=== PATIENT | male | born 1945 | race Caucasian/White ===

== ENCOUNTER 2023-10-01 18:24 | Inpatient (IN) | payer MEDICARE, SELFPAY ==
--- NOTE | ~2023-10-01 | XR_ITS ---
EXAMINATION: XR CHEST CLINICAL INFORMATION: Pneumonia. COMPARISON: None available. TECHNIQUE: AP view of the chest was obtained. FINDINGS: Normal heart size. Mild predominantly central interstitial thickening. No focal consolidation. No pleural effusion or pneumothorax. No acute osseous findings. XR/XR chest 1V IMPRESSION: Minimal interstitial prominence that is nonspecific and could be seen with small airways disease.
[2023-10-01 18:37] VITALS: BP 168/86; BP 200/116; PULSE 101; PULSE 97; RESP 20; TEMP 39.3; O2SAT 96; O2SAT 98; BMI 29.0
--- NOTE | 2023-10-01 18:40 | PC.NURSE ---
Pt reporting he received his covid/flu vaccine on 09/03 since then he has not felt well, dizziness/cough/weakness. Reporting he feels that he is developing a fever, oral temp at Ed was 102.7f. He is a/ox4 at this time.
--- NOTE | 2023-10-01 19:21 | ECG_ITS ---
Test Reason : dizziness Blood Pressure : / mmHG Vent. Rate : 092 BPM Atrial Rate : 092 BPM P-R Int : 142 ms QRS Dur : 082 ms QT Int : 354 ms P-R-T Axes : 072 -18 062 degrees QTc Int : 437 ms Normal sinus rhythm Left axis deviation Normal ECG No previous ECGs available Referred By: Roma Garcia Electronically Signed By:ROSENDO DE LEON MD
--- NOTE | 2023-10-01 19:23 | ED.GENADULT ---
HPI - General Adult General Chief complaint: General Medical Stated complaint: POS COVID COUGH CHILLS Time Seen by Provider: 10/01/23 19:14 Source: patient Mode of arrival: EMS Limitations: no limitations History of Present Illness HPI narrative: Patient comes to the emergency room complaining of not feeling well for approximately a month. Patient states that he has been coughing, no fever chills until today. Patient states that approximately a week ago, patient had some urinary retention, went to [facility], diagnosed for urinary retention. A catheter was inserted. Patient was supposed to follow up with Urology. However, patient was scared of urination trial, stating that if he would retain urine again, a catheter would have to be reinserted and patient refused to have his catheter removed. patient went to see his PCP today, he was started on a new blood pressure medication that he has not started yet. Related Data Home Medications Medication Instructions Recorded Confirmed amlodipine 5 mg tablet 5 mg PO BEDTIME 10/01/23 10/01/23 betamethasone, augmented 0.05 % 1 appl topical DAILY 10/01/23 10/01/23 topical cream cholecalciferol (vitamin D3) 25 25 mcg PO BEDTIME 10/01/23 10/01/23 mcg (1,000 unit) tablet lisinopril 40 mg tablet 40 mg PO BEDTIME 10/01/23 10/01/23 simvastatin 20 mg tablet 20 mg PO BEDTIME 10/01/23 10/01/23 tamsulosin 0.4 mg capsule 0.4 mg PO BEDTIME 10/01/23 10/01/23 Allergies Allergy/AdvReac Type Severity Reaction Status Date / Time No Known Allergies Allergy Verified 10/01/23 18:39 Review of Systems Review of Systems: Constitutional : No Weight loss, No Fever, No Chills, No Night Sweats, No Fatigue, No Malaise ENT/Mouth : No Hearing loss, No Ear Pain, No Nasal Congestion, No Sinus Pain, No Hoarseness, No sore throat, No Rhinorrhea, No Swallowing Difficulty Eyes: No Eye Pain, No Swelling, No Redness, No Foreign Body, No Discharge, No Vision Changes Cardiovascular : No Chest Pain, No SOB, No Dyspnea on Exertion, No Orthopnea, No Edema, No Palpitations Respiratory : No Cough, No Sputum, No Wheezing, No Smoke Exposure, No Dyspnea Gastrointestinal : No Nausea, No Vomiting, No Diarrhea, No Constipation, No abdominal Pain, No Hematochezia, No Melena Genitourinary : patient has a Foleyp catheter,, No Dysuria, No Urinary Frequency, No Hematuria, No Urinary Incontinence, No Urgency, No Flank Pain, No Urinary Flow Changes, No Hesitancy Musculoskeletal : No joint pain, No Myalgias, No Joint Swelling Skin : No Skin Lesions, No rash Neuro : No Weakness, No Numbness, No Paresthesias, No Loss of Consciousness, No Dizziness, No Headache Psych : No Anxiety/Panic, No Depression, No SI/HI/AH/VH, No Social Issues, Heme/Lymph: No Bruising, No Bleeding,No Lymphadenopathy Endocrine : No Polyuria, No Polydipsia, No Temperature Intolerance [facility] Past Medical History Medical History Urinary retention Mixed hyperlipidemia Essential hypertension Social History Social History Smoked in Last 30 Days: No Advance Directives: Yes Advance Directives Information Provided: No Advance Directives on File: No Physical Exam ED Vital Signs: Vital Signs - 24 hr 10/01/23 18:37 10/01/23 21:05 Temperature 102.7 F H 99.5 F Pulse Rate 97 90 Respiratory Rate 20 16 Blood Pressure 168/86 H 167/88 H Pulse Oximetry 96 92 Oxygen Delivery Method Room Air Room Air BMI result Body Mass Index 29.0 Const Other: Appearance: Alert. Oriented X3. No acute distress. Well-appearing Eyes: Pupils equal, round and reactive to light. ENT: Pharynx normal. Neck: Normal inspection. Neck supple. No lymph nodes noted. No crepitus CVS: Normal heart rate and rhythm. Pulses normal. Normal S1 and S2 Respiratory: No respiratory distress. Breath sounds normal. No Wheezing. No rales Abdomen: Soft and nontender. No rigidity. No distention. no flank pain Skin: Skin warm and dry. Normal skin color. Normal skin turgor. Extremities: No lower extremity edema. No Lacerations. No Rash Neuro: Oriented X 3. No motor deficit. No sensory deficit. Moving all extremities. No slurred speech. CN 2 through 12 grossly intact Psych: calm, cooperative, normal affect Medications Administered Generic Name Dose Route Start Last Admin Trade Name Freq PRN Reason Stop Dose Admin Enoxaparin Sodium 40 mg 10/01/23 21:00 10/01/23 21:06 Enoxaparin Sodium 40 Mg/0.4 Ml Syringe SUBCUT 40 mg Q24H DEBORAH Administration Sodium Chloride 1,000 mls @ 999 mls/hr 10/01/23 20:56 10/01/23 21:03 Ns IV 10/01/23 21:56 999 mls/hr .Q1H1M ONE Administration Ceftriaxone Sodium 1 gm/ 50 mls @ 100 mls/hr 10/01/23 21:00 10/01/23 21:05 Sodium Chloride IV 100 mls/hr Q24H DEBORAH Administration Discontinued Medications Generic Name Dose Route Start Last Admin Trade Name Freq PRN Reason Stop Dose Admin Acetaminophen 975 mg 10/01/23 19:22 10/01/23 19:33 Acetaminophen 325 Mg Tablet PO 10/01/23 19: 975 mg ONCE ONE Administration Medical Decision Making Medical Decision Making [facility] Narrative: - patient came in with a fever of 102.7, the source infection is unclear, may be viral. Patient does have a catheter, possibly a UTI? - Patient is not tachycardic, normal blood pressure, sepsis is not suspected. - At this time, 20:50, patient's urine has returned, patient does have a UTI. At this time, patient is unwilling to have his catheter removed due to fear of having urinary obstruction. Discussed with the patient eventually the catheter will have to be removed and have a urination trial. - I discussed the patient with Dr. Terrell, I will go ahead and start IV fluids, ceftriaxone. Patient to be admitted. -my interpretation of cxr: no pna Differential Diagnosis Differential Diagnoses: The differential diagnosis associated with the presentation includes ( UTI, COVID, influenza) Admission/Observation Consideration of admission/observation: Escalation of care including admission/observation considered Consult Healthcare Provider Management of the patient was discussed with: Hospitalist Lab Data [facility] Lab Attestation statement: I reviewed the patient's lab results. 10/01/23 19:57 10/01/23 19:54 Labs: Lab Results 10/01/23 10/01/23 10/01/23 Range/Units 19:54 19:55 19:57 WBC 16.9 H (4.8-10.8) X10*3/uL RBC 3.94 L (4.60-5.80) X10*6/uL Hgb 12.8 L (14.0-18.0) g/dl Hct 36.9 L (42.0-52.0) % MCV 93.7 (80.0-98.0) fL MCH 32.5 (27.0-33.0) pg MCHC 34.7 (31.0-36.0) g/dl RDW 13.0 (11.0-16.0) % Plt Count 193 (160-400) X10*3/uL MPV 8.8 L (9.4-12.4) fL Immature Gran % (Auto) 0.5 H (0.0-0.4) % Neut % (Auto) 67.7 (45-73) % Lymph % (Auto) 26.3 (20-40) % [place] % (Auto) 5.3 (2-11) % Eos % (Auto) 0.0 (0-4) % Baso % (Auto) 0.2 (0-2) % Lymph # (Auto) 4.5 (1.2-4.9) X10*3/uL [place] # (Auto) 0.9 (0.1-1.2) X10*3/uL Eos # (Auto) 0.0 (0.0-0.4) X10*3/uL Baso # (Auto) 0.0 (0.0-0.2) X10*3/uL Abs Immat Gran (auto) 0.09 H (0.00-0.03) X10*3/uL Absolute Neuts (auto) 11.4 H (2.0-8.3) x10*3/uL Absolute Nucleated RBC 0.000 (0.0-0.012) X10*3/uL Nucleated RBC % (auto) 0.0 (0.0-0.2) /100WBC Sodium 136 (135-145) mmol/L Potassium 3.8 (3.3-5.1) mmol/L Chloride 101 (96-108) mmol/L Carbon Dioxide 26 (22-29) mmol/L Anion Gap 13 (12-20) BUN 12 (9-16) mg/dL Creatinine 0.63 (0.5-1.4) mg/dL Estim Creat Clear Calc 101.6 Estimated GFR > 60 Random Glucose 109 (60-115) mg/dL Lactic Acid 1.1 (0.5-2.0) mmol/L Calcium 8.8 (8.4-10.2) mg/dL Total Bilirubin 0.8 (0.0-1.0) mg/dL Direct Bilirubin 0.3 (0.0-0.5) mg/dL AST 22 (5-37) U/L ALT 13 (0-40) U/L Alkaline Phosphatase 66 (39-117) U/L Troponin I High Sens 31.8 (<3.5-35.0) ng/L Total Protein 6.6 (6.5-8.0) g/dL Albumin 3.8 (3.5-5.0) g/dL Urine Color Urine Appearance Urine pH (5.0-9.0) Ur Specific [place] (1.005-1.025) Urine Protein (Neg-Trace) mg/dL Urine Glucose (UA) (Negative) mg/dL Urine Ketones (Negative) mg/dL Urine Blood (Negative) Urine Nitrite (Negative) Ur Leukocyte Esterase (Negative) Urine RBC (0-2) /HPF Urine WBC (0-5) /HPF Ur Squamous Epith Cells (0-2) /HPF Urine Bacteria (None Seen) Hyaline Casts (0-2) /LPF COVID-19 (KIERAN) (Negative) COVID-19 Clin Com Influenza Type A (ANGELITO) (Negative) Influenza Type B (ANGELITO) (Negative) Influenza A & B Note 10/01/23 10/01/23 Range/Units 20:04 20:08 WBC (4.8-10.8) X10*3/uL RBC (4.60-5.80) X10*6/uL Hgb (14.0-18.0) g/dl Hct (42.0-52.0) % MCV (80.0-98.0) fL MCH (27.0-33.0) pg MCHC (31.0-36.0) g/dl RDW (11.0-16.0) % Plt Count (160-400) X10*3/uL MPV (9.4-12.4) fL Immature Gran % (Auto) (0.0-0.4) % Neut % (Auto) (45-73) % Lymph % (Auto) (20-40) % [place] % (Auto) (2-11) % Eos % (Auto) (0-4) % Baso % (Auto) (0-2) % Lymph # (Auto) (1.2-4.9) X10*3/uL [place] # (Auto) (0.1-1.2) X10*3/uL Eos # (Auto) (0.0-0.4) X10*3/uL Baso # (Auto) (0.0-0.2) X10*3/uL Abs Immat Gran (auto) (0.00-0.03) X10*3/uL Absolute Neuts (auto) (2.0-8.3) x10*3/uL Absolute Nucleated RBC (0.0-0.012) X10*3/uL Nucleated RBC % (auto) (0.0-0.2) /100WBC Sodium (135-145) mmol/L Potassium (3.3-5.1) mmol/L Chloride (96-108) mmol/L Carbon Dioxide (22-29) mmol/L Anion Gap (12-20) BUN (9-16) mg/dL Creatinine (0.5-1.4) mg/dL Estim Creat Clear Calc Estimated GFR Random Glucose (60-115) mg/dL Lactic Acid (0.5-2.0) mmol/L Calcium (8.4-10.2) mg/dL Total Bilirubin (0.0-1.0) mg/dL Direct Bilirubin (0.0-0.5) mg/dL AST (5-37) U/L ALT (0-40) U/L Alkaline Phosphatase (39-117) U/L Troponin I High Sens (<3.5-35.0) ng/L Total Protein (6.5-8.0) g/dL Albumin (3.5-5.0) g/dL Urine Color Yellow Urine Appearance Cloudy Urine pH 7.5 (5.0-9.0) Ur Specific [place] 1.015 (1.005-1.025) Urine Protein 100 (2+) H (Neg-Trace) mg/dL Urine Glucose (UA) Negative (Negative) mg/dL Urine Ketones 15 (Negative) mg/dL Urine Blood Moderate (2+) H (Negative) Urine Nitrite Negative (Negative) Ur Leukocyte Esterase Small (1+) H (Negative) Urine RBC 3-5 H (0-2) /HPF Urine WBC >50 H (0-5) /HPF Ur Squamous Epith Cells 0-2 (0-2) /HPF Urine Bacteria 4+ (None Seen) Hyaline Casts 6-10 (0-2) /LPF COVID-19 (KIERAN) Negative (Negative) COVID-19 Clin Com See Note Influenza Type A (ANGELITO) Negative (Negative) Influenza Type B (ANGELITO) Negative (Negative) Influenza A & B Note See Note Independent Interpretation I performed an independent interpretation of an: Plain X-Ray Critical Care Time Critical Care Time Critical Care Time: Yes Total Critical Care Time: 60 Attestation: I have personally provided critical care time. Time includes review of lab data, radiology results, discussion with consultants, and monitoring for potential decompensation. Intervention performed as documented. Discharge Plan Discharge Clinical Impression: Acute UTI Patient Disposition: Admitted As Inpatient Prescriptions: No Action betamethasone, augmented 0.05 % cream 1 appl topical DAILY amlodipine 5 mg tablet 5 mg PO BEDTIME tamsulosin 0.4 mg capsule 0.4 mg PO BEDTIME simvastatin 20 mg tablet 20 mg PO BEDTIME lisinopril 40 mg Tablet 40 mg PO BEDTIME cholecalciferol (vitamin D3) 25 mcg (1,000 unit) Tablet 25 mcg PO BEDTIME
[2023-10-01] MEDS: Acetaminophen 325 MG TABLET 975 MG PO (19:33)
--- NOTE | 2023-10-01 19:36 | PC.NURSE ---
assumed care of pt
[2023-10-01 20:09] LABS: MANUAL DIFF FLAG NO
[2023-10-01 20:14] LABS: Basophils Percent Auto 0.2 % (0-2); Hematocrit 36.9 % (42.0-52.0); Hemoglobin 12.8 g/dl (14.0-18.0); Imm Gran Abs Auto 0.09 X10*3/uL (0.00-0.03); Imm Gran Pct Auto 0.5 % (0.0-0.4); Lymphocytes Absolute Auto 4.5 X10*3/uL (1.2-4.9); Lymphocytes Percent Auto 26.3 % (20-40); Mean Corpuscular HGB Conc 34.7 g/dl (31.0-36.0); Mean Corpuscular Hemoglobin 32.5 pg (27.0-33.0); Mean Corpuscular Volume 93.7 fL (80.0-98.0); Mean Platelet Volume 8.8 fL (9.4-12.4); Monocytes Absolute Auto 0.9 X10*3/uL (0.1-1.2); Monocytes Percent Auto 5.3 % (2-11); Neutrophils Absolute Auto 11.4 x10*3/uL (2.0-8.3); Neutrophils Percent Auto 67.7 % (45-73); Platelet Count 193 X10*3/uL (160-400); Red Blood Count 3.94 X10*6/uL (4.60-5.80); White Blood Count 16.9 X10*3/uL (4.8-10.8)
[2023-10-01 20:21] LABS: Lactic Acid 1.1 mmol/L (0.5-2.0)
[2023-10-01 20:22] LABS: Appearance Urine Cloudy; Color Urine Yellow; Glucose Urine UA Negative (Negative); Leukocyte Esterase Urine Small (1+) (Negative); Nitrite Urine Negative (Negative); PH 7.5 (5.0-9.0); Specific Gravity - Urine 1.015 (1.005-1.025); UMIC TRIGGER UACC YES; Urine Blood Moderate (2+) (Negative); Urine Ketones 15 mg/dL (Negative); Urine Protein 100 (2+) mg/dL (Neg-Trace)
[2023-10-01 20:25] LABS: Alanine Aminotransferase 13 U/L (0-40); Albumin Level 3.8 g/dL (3.5-5.0); Alkaline Phosphatase 66 U/L (39-117); Anion Gap 13 (12-20); Aspartate Amino Transferase 22 U/L (5-37); Bilirubin Direct 0.3 mg/dL (0.0-0.5); Bilirubin Total 0.8 mg/dL (0.0-1.0); Blood Urea Nitrogen 12 mg/dL (9-16); Calcium 8.8 mg/dL (8.4-10.2); Carbon Dioxide 26 mmol/L (22-29); Chloride 101 mmol/L (96-108); Creatinine Clr Calc Pharmacy 101.6; Estimated Glomerular Filt Rate > 60; Glucose Random 109 mg/dL (60-115); Potassium 3.8 mmol/L (3.3-5.1); Sodium 136 mmol/L (135-145); Total Protein 6.6 g/dL (6.5-8.0)
[2023-10-01 20:27] LABS: COVID-19 Test Negative (Negative); IDNOW Serial# BCCEAD1C
[2023-10-01 20:28] LABS: IDNOW Serial# 9DB6401D; Influenza A Negative (Negative); Influenza B2 Negative (Negative)
[2023-10-01 20:32] LABS: Troponin-I High Sensitivity 31.8 ng/L (<3.5-35.0)
[2023-10-01 20:34] LABS: Bacteria Urine 4+ (None Seen); Squamous Epithelial Cell Urine 0-2 /HPF (0-2); UACC Culture Trigger YES; WBC Urine >50 /HPF (0-5)
--- NOTE | 2023-10-01 20:56 | P.HPHOSP_ITS ---
History of Present Illness Date of Service: 10/01/23 Chief Complaint: Generalized weakness This is a 77-year-old male with pertinent history of essential hypertension, mixed hyperlipidemia, urinary retention on catheter who presents to the emergency department for generalized weakness, not feeling well and dizziness. Patient states he has not been feeling unwell for the last few days. Admits fevers and Chills. Also has generalized weakness. Patient states he gets dizzy when he tries to get up. Also noticed change in color of urine. Patient states that around Halloween, he was unable to pee and catheter was inserted due to urinary retention. No chest discomfort, palpitations, shortness of breath, abdominal pain, changes in bowel habits. In the emergency department, patient was found to be septic and urine concerning for UTI. Review of Systems 2 Constitutional: Constitutional: Reports chills, Reports fatigue, Reports fever(s), Reports lethargy, Reports poor appetite and Reports weakness Cardiovascular: Cardiovascular: Reports no additional cardiovascular complaints Respiratory: Respiratory: Reports no additional respiratory complaints Gastrointestinal: Gastrointestinal: Reports no additional gastrointestinal complaints Neurologic: Reports weakness Endocrine: Endocrine: Reports fatigue [facility] Medical History Urinary retention Mixed hyperlipidemia Essential hypertension Pertinent family history: No family history of early CAD Social History Patient Tobacco Use Status: Never used Tobacco Meds Allergies Allergy/AdvReac Type Severity Reaction Status Date / Time No Known Allergies Allergy Verified 10/01/23 18:39 Active Medications: Current Medications Acetaminophen (Acetaminophen 325 Mg Tablet) 650 mg PO Q6H PRN PRN Reason: Pain, Mild (Pain Scale 1-3) Enoxaparin Sodium (Enoxaparin Sodium 40 Mg/0.4 Ml Syringe) 40 mg SUBCUT Q24H DEBORAH Sodium Chloride (Ns) 1,000 mls @ 999 mls/hr IV .Q1H1M ONE Stop: 10/01/23 21:56 Melatonin (Melatonin 3 Mg Tablet) 6 mg PO BEDTIME PRN PRN Reason: Insomnia Ondansetron HCl (Ondansetron Hcl 4 Mg/2 Ml Vial) 4 mg IVPUSH Q8H PRN PRN Reason: Nausea and Vomiting Sodium Chloride (0.9 % Sodium Chloride Flush 3 Ml Syringe) 3 ml IVFLUSH QSHIFT [facility] Home Medications Medication Instructions Recorded Confirmed Last Taken Type amlodipine 5 mg tablet 5 mg PO BEDTIME 10/01/23 10/01/23 09/30/23 History betamethasone, augmented 0.05 % 1 appl topical DAILY 10/01/23 10/01/23 09/30/23 History topical cream cholecalciferol (vitamin D3) 25 25 mcg PO BEDTIME 10/01/23 10/01/23 09/30/23 History mcg (1,000 unit) tablet lisinopril 40 mg tablet 40 mg PO BEDTIME 10/01/23 10/01/23 09/30/23 History simvastatin 20 mg tablet 20 mg PO BEDTIME 10/01/23 10/01/23 09/30/23 History tamsulosin 0.4 mg capsule 0.4 mg PO BEDTIME 10/01/23 10/01/23 09/30/23 History Physical Exam 2 Vital Signs and Narrative: Vital Signs: Last Vital Signs Temp 102.7 F H 10/01/23 18:37 Pulse 97 10/01/23 18:37 Resp 20 10/01/23 18:37 BP 168/86 H 10/01/23 18:37 Pulse Ox 96 10/01/23 18:37 O2 Del Method Room Air 10/01/23 18:37 BMI result Body Mass Index 29.0 Elderly male lying in bed in no distress Neck supple, no JVD Regular rate and rhythm, S1-S2 heard Regular breath sounds bilaterally, no wheezing or crackles appreciated Abdomen soft nontender, no guarding, no rigidity Patient is awake, alert and oriented to self, place, time and person ; no focal motor deficit Psych: Normal mood No pedal edema Results Labs 10/01/23 19:57 10/01/23 19:54 Labs: Laboratory Results - last 24 hr 10/01/23 10/01/23 10/01/23 19:54 19:55 19:57 MCV 93.7 MCH 32.5 MCHC 34.7 RDW 13.0 Plt Count 193 MPV 8.8 L Immature Gran % (Auto) 0.5 H Neut % (Auto) 67.7 Lymph % (Auto) 26.3 [place] % (Auto) 5.3 Eos % (Auto) 0.0 Baso % (Auto) 0.2 Lymph # (Auto) 4.5 [place] # (Auto) 0.9 Eos # (Auto) 0.0 Baso # (Auto) 0.0 Abs Immat Gran (auto) 0.09 H Absolute Neuts (auto) 11.4 H Absolute Nucleated RBC 0.000 Nucleated RBC % (auto) 0.0 Anion Gap 13 Estim Creat Clear Calc 101.6 Estimated GFR > 60 Random Glucose 109 Lactic Acid 1.1 Calcium 8.8 Total Bilirubin 0.8 Direct Bilirubin 0.3 AST 22 ALT 13 Alkaline Phosphatase 66 Total Protein 6.6 Albumin 3.8 Urine Color Urine Appearance Urine pH Ur Specific [place] Urine Protein Urine Glucose (UA) Urine Ketones Urine Blood Urine Nitrite Ur Leukocyte Esterase Urine RBC Urine WBC Ur Squamous Epith Cells Urine Bacteria Hyaline Casts COVID-19 (KIERAN) COVID-19 Clin Com Influenza Type A (ANGELITO) Influenza Type B (ANGELITO) Influenza A & B Note 10/01/23 10/01/23 20:04 20:08 MCV MCH MCHC RDW Plt Count MPV Immature Gran % (Auto) Neut % (Auto) Lymph % (Auto) [place] % (Auto) Eos % (Auto) Baso % (Auto) Lymph # (Auto) [place] # (Auto) Eos # (Auto) Baso # (Auto) Abs Immat Gran (auto) Absolute Neuts (auto) Absolute Nucleated RBC Nucleated RBC % (auto) Anion Gap Estim Creat Clear Calc Estimated GFR Random Glucose Lactic Acid Calcium Total Bilirubin Direct Bilirubin AST ALT Alkaline Phosphatase Total Protein Albumin Urine Color Yellow Urine Appearance Cloudy Urine pH 7.5 Ur Specific [place] 1.015 Urine Protein 100 (2+) H Urine Glucose (UA) Negative Urine Ketones 15 Urine Blood Moderate (2+) H Urine Nitrite Negative Ur Leukocyte Esterase Small (1+) H Urine RBC 3-5 H Urine WBC >50 H Ur Squamous Epith Cells 0-2 Urine Bacteria 4+ Hyaline Casts 6-10 COVID-19 (KIERAN) Negative COVID-19 Clin Com See Note Influenza Type A (ANGELITO) Negative Influenza Type B (ANGELITO) Negative Influenza A & B Note See Note Assessment and Plan (1) Sepsis: Status: Acute Plan This is a 77-year-old male with pertinent history of essential hypertension, mixed hyperlipidemia, urinary retention on catheter who presents to the emergency department for generalized weakness, not feeling well and dizziness. #. Sepsis due to acute UTI: Will admit patient and initiate empiric IV antibiotics. Resuscitating with IV crystalloids. Lactic acid culture obtained. Urine culture pending #. Essential hypertension: Hold antihypertensives in the setting of sepsis. #. Mixed hyperlipidemia: On statin #. Urine retention: On Flomax. Is on catheter until voiding trial by Urology as an outpatient. Cardiac diet DVT prophylaxis: Lovenox Admit as inpatient and will require two night minimum hospital stay for IV antibiotics (as above), which is not possible in a lesser acute setting. Quality Stroke Does the patient have a stroke diagnosis?: No VTE Prior VTE?: No VTE Risk Level:: Medical - moderate - high VTE Device Contraindication: Treatment Not Indicated VTE Drug Contraindication: N/A - Med Ordered
[2023-10-01] MEDS: 0.9 % Sodium Chloride 1,000 ML 999 ML IV (21:03)
[2023-10-01 21:05] VITALS: BP 167/88; PULSE 90; RESP 16; TEMP 37.5; O2SAT 92
[2023-10-01] MEDS: cefTRIAXone sodium 1 GM in 0.9 % Sodium Chloride 50 ML IV (21:05)
[2023-10-01] MEDS: Enoxaparin Sodium 40 MG/0.4 ML SYRINGE SUBCUT (21:06)
--- NOTE | 2023-10-01 21:06 | PHA.MEDREC ---
Pharmacy Consult ? Medication Reconciliation Pharmacy has completed the medication reconciliation. Patient reported medicaitons. patient reported prescribed a new BP medication (amlodipine) but he has not started it yet. Catalina Pollard, DelmyD
[2023-10-01 21:12] VITALS: BP 156/80; PULSE 86
[2023-10-01] MEDS: Cholecalciferol (Vitamin D3) 25 MCG TABLET PO (21:56)
[2023-10-01] MEDS: Atorvastatin Calcium 10 MG TABLET PO (21:56)
[2023-10-01] MEDS: Tamsulosin HCL 0.4 MG CAPSULE PO (21:56)
[2023-10-01 21:57] VITALS: BP 166/95; PULSE 89
[2023-10-02] VITALS (8 sets, daily range): BP systolic 156–179; BP diastolic 78–94; PULSE 70–96; RESP 16–24; TEMP 36.4–37.3; O2SAT 94–97; BMI 29.0
[2023-10-02] MEDS: Benzonatate 100 MG CAPSULE 200 MG PO ×2 (04:27→15:22)
--- NOTE | 2023-10-02 05:13 | PC.NURSE ---
Addendum entered by Lizbeth Crews RN 10/02/23 05:19: cath noted upon arrival with dark yellow and slightly cloudy urine. Original Note: Arrived to the unit at 0300 from the ED, pt alert and oriented but endorsed weakness and gen malaise, not with strong persistent coughing non prod, denies any SOB nor CP, LS left throughout is dim with fine crackles, noted with +1 RLE edema, VS stable, notified Dr. Ricardo for prn cough med, Tessalon pearls ordered and given to pt.
[2023-10-02 06:21] LABS: Basophils Percent Auto 0.2 % (0-2); Eosinophils Absolute Auto 0.1 X10*3/uL (0.0-0.4); Eosinophils Percent Auto 0.3 % (0-4); Hemoglobin 12.1 g/dl (14.0-18.0); Imm Gran Abs Auto 0.08 X10*3/uL (0.00-0.03); Imm Gran Pct Auto 0.4 % (0.0-0.4); Lymphocytes Percent Auto 43.1 % (20-40); MANUAL DIFF FLAG SCAN; Mean Corpuscular HGB Conc 33.6 g/dl (31.0-36.0); Mean Corpuscular Volume 95.2 fL (80.0-98.0); Mean Platelet Volume 9.2 fL (9.4-12.4); Monocytes Percent Auto 5.2 % (2-11); Neutrophils Percent Auto 50.8 % (45-73); Platelet Count 176 X10*3/uL (160-400); Red Blood Count 3.78 X10*6/uL (4.60-5.80); Red Cell Distribution Width 13.1 % (11.0-16.0); SCAN SMEAR FLAG 1; White Blood Count 19.7 X10*3/uL (4.8-10.8)
[2023-10-02 06:22] LABS: Lymphocytes Absolute Auto 8.5 X10*3/uL (1.2-4.9)
[2023-10-02 06:37] LABS: Anion Gap 10 (12-20); Blood Urea Nitrogen 9 mg/dL (9-16); Calcium 8.4 mg/dL (8.4-10.2); Carbon Dioxide 26 mmol/L (22-29); Chloride 102 mmol/L (96-108); Creatinine Clr Calc Pharmacy 110.3; Estimated Glomerular Filt Rate > 60; Glucose Random 100 mg/dL (60-115); Potassium 3.2 mmol/L (3.3-5.1); Sodium 135 mmol/L (135-145)
[2023-10-02 07:08] LABS: SLIDE REVIEW VERIFIED
[2023-10-02] MEDS: Albuterol/Iprat 2.5/0.5MG 3 ML AMPUL.NEB INHALE ×3 (08:10→16:02)
[2023-10-02] MEDS: 0.9 % Sodium Chloride Flush 3 ML SYRINGE IVFLUSH ×2 (08:21→15:22)
--- NOTE | 2023-10-02 10:58 | P.PNIM_ITS ---
Subjective Subjective Date of Service: 10/02/23 Interval History: feeling better today Physical Exam 2 Vital Signs: Vital Signs: Last Vital Signs Temp 98.4 F 10/02/23 07:38 Pulse 87 10/02/23 08:11 Resp 16 10/02/23 08:11 BP 158/84 H 10/02/23 07:38 Pulse Ox 94 10/02/23 07:38 O2 Del Method Room Air 10/02/23 07:38 BMI result Body Mass Index 29.0 General: AO X 3, no acute distress Resp: CTA bilateral, no accessory muscles used CVS: S1,S2,RRR GI: soft, non tender, non distended Neuro: motor grossly intact, alert Psych: appropriate affect, appropriate insight Objective Data Active Medications Acetaminophen (Acetaminophen 325 Mg Tablet) 650 mg PO Q6H PRN PRN Reason: Pain, Mild (Pain Scale 1-3) Albuterol/Ipratropium (Albuterol/Iprat 2.5/0.5mg 3 Ml Ampul.Neb) 3 ml INHALE RQ4H WHILE AWAKE DEBORAH Last Admin: 10/02/23 08:10 Dose: 3 ml Documented By: GEOVANNY Albuterol/Ipratropium (Albuterol/Iprat 2.5/0.5mg 3 Ml Ampul.Neb) 3 ml INHALE Q4H PRN PRN Reason: Wheezing Amlodipine Besylate (Amlodipine Besylate 5 Mg Tablet) 5 mg PO BEDTIME DEBORAH; Protocol Atorvastatin Calcium (Atorvastatin Calcium 10 Mg Tablet) 10 mg PO BEDTIME DEBORAH Last Admin: 10/01/23 21:56 Dose: 10 mg Documented By: FRANKLYN Benzonatate (Benzonatate 100 Mg Capsule) 200 mg PO TID PRN PRN Reason: Cough Last Admin: 10/02/23 04:27 Dose: 200 mg Documented By: HEIDI Betamethasone Dipropion Augmented (Betamethasone Dip Aug 0.05% Cr 15 Gm Tube) 1 appl TOPICAL DAILY DEBORAH; Protocol Last Admin: 10/02/23 08:22 Dose: Not Given Documented By: JACQUELINE Non-Admin Reason: Med Not Available Enoxaparin Sodium (Enoxaparin Sodium 40 Mg/0.4 Ml Syringe) 40 mg SUBCUT Q24H DEBORAH Last Admin: 10/01/23 21:06 Dose: 40 mg Documented By: FRANKLYN Ceftriaxone Sodium 1 gm/ (Sodium Chloride) 50 mls @ 100 mls/hr IV Q24H [facility] Last Infusion: 10/01/23 21:48 Dose: Infused Documented By: FRANKLYN Lisinopril (Lisinopril 40 Mg Tablet) 40 mg PO BEDTIME DEBORAH; Protocol Melatonin (Melatonin 3 Mg Tablet) 6 mg PO BEDTIME PRN PRN Reason: Insomnia Ondansetron HCl (Ondansetron Hcl 4 Mg/2 Ml Vial) 4 mg IVPUSH Q8H PRN PRN Reason: Nausea and Vomiting Sodium Chloride (0.9 % Sodium Chloride Flush 3 Ml Syringe) 3 ml IVFLUSH QSHIFT [facility] Last Admin: 10/02/23 08:21 Dose: 3 ml Documented By: JACQUELINE Tamsulosin HCl (Tamsulosin Hcl 0.4 Mg Capsule) 0.4 mg PO BEDTIME [facility] Last Admin: 10/01/23 21:56 Dose: 0.4 mg Documented By: FRANKLYN Vitamin D (Cholecalciferol (Vitamin D3) 25 Mcg Tablet) 25 mcg PO BEDTIME [facility] Last Admin: 10/01/23 21:56 Dose: 25 mcg Documented By: FRANKLYN Labs 10/02/23 05:41 10/02/23 05:41 Labs: Laboratory Results - last 24 hr 10/01/23 10/01/23 10/01/23 19:54 19:55 19:57 MCV 93.7 MCH 32.5 MCHC 34.7 RDW 13.0 Plt Count 193 MPV 8.8 L Immature Gran % (Auto) 0.5 H Neut % (Auto) 67.7 Lymph % (Auto) 26.3 [place] % (Auto) 5.3 Eos % (Auto) 0.0 Baso % (Auto) 0.2 Lymph # (Auto) 4.5 [place] # (Auto) 0.9 Eos # (Auto) 0.0 Baso # (Auto) 0.0 Abs Immat Gran (auto) 0.09 H Absolute Neuts (auto) 11.4 H Absolute Nucleated RBC 0.000 Nucleated RBC % (auto) 0.0 Smear Tech's Comments Anion Gap 13 Estim Creat Clear Calc 101.6 Estimated GFR > 60 Random Glucose 109 Lactic Acid 1.1 Calcium 8.8 Total Bilirubin 0.8 Direct Bilirubin 0.3 AST 22 ALT 13 Alkaline Phosphatase 66 Total Protein 6.6 Albumin 3.8 Urine Color Urine Appearance Urine pH Ur Specific [place] Urine Protein Urine Glucose (UA) Urine Ketones Urine Blood Urine Nitrite Ur Leukocyte Esterase Urine RBC Urine WBC Ur Squamous Epith Cells Urine Bacteria Hyaline Casts COVID-19 (KIERAN) COVID-19 Clin Com Influenza Type A (ANGELITO) Influenza Type B (ANGELITO) Influenza A & B Note 10/01/23 10/01/23 10/02/23 20:04 20:08 05:41 MCV 95.2 MCH 32.0 MCHC 33.6 RDW 13.1 Plt Count 176 MPV 9.2 L Immature Gran % (Auto) 0.4 Neut % (Auto) 50.8 Lymph % (Auto) 43.1 H [place] % (Auto) 5.2 Eos % (Auto) 0.3 Baso % (Auto) 0.2 Lymph # (Auto) 8.5 H [place] # (Auto) 1.0 Eos # (Auto) 0.1 Baso # (Auto) 0.0 Abs Immat Gran (auto) 0.08 H Absolute Neuts (auto) 10.0 H Absolute Nucleated RBC 0.000 Nucleated RBC % (auto) 0.0 Smear Tech's Comments VERIFIED Anion Gap 10 L Estim Creat Clear Calc 110.3 Estimated GFR > 60 Random Glucose 100 Lactic Acid Calcium 8.4 Total Bilirubin Direct Bilirubin AST ALT Alkaline Phosphatase Total Protein Albumin Urine Color Yellow Urine Appearance Cloudy Urine pH 7.5 Ur Specific [place] 1.015 Urine Protein 100 (2+) H Urine Glucose (UA) Negative Urine Ketones 15 Urine Blood Moderate (2+) H Urine Nitrite Negative Ur Leukocyte Esterase Small (1+) H Urine RBC 3-5 H Urine WBC >50 H Ur Squamous Epith Cells 0-2 Urine Bacteria 4+ Hyaline Casts 6-10 COVID-19 (KIERAN) Negative COVID-19 Clin Com See Note Influenza Type A (ANGELITO) Negative Influenza Type B (ANGELITO) Negative Influenza A & B Note See Note Assessment and Plan (1) Acute UTI: Status: Acute Plan 77M PMH put chronic urinary retention with catheter, hypertension, hyperlipidemia presented with weakness Sepsis due to catheter associated UTI in patient with chronic due to urinary retention Ceftriaxone, follow-up cultures Continue Flomax Hypertension Amlodipine, lisinopril Hyperlipidemia Continue statin DVT prophylaxis with Lovenox Full code reason for continued hospitalization: Awaiting cultures in complicated UTI Quality Stroke Does the patient have a stroke diagnosis?: No VTE Prior VTE?: No VTE Risk Level:: Medical - moderate - high VTE Device Contraindication: Treatment Not Indicated VTE Drug Contraindication: N/A - Med Ordered
--- NOTE | 2023-10-02 12:48 | MHC.CM.PN ---
PT REPORTS HE LIVES WITH HIS AND IS INDEPENDENT WITH ALL CARE HE DENIES USE OF DME OR HOME SERVICES PT STATES HE HAS A HCP, COPY REQUESTED PCP: MELINDA PEREZ IMM DELIVERED DCP: HOME ? [facility] TO TRANSPORT
[2023-10-02] MEDS: Enoxaparin Sodium 40 MG/0.4 ML SYRINGE SUBCUT (19:28)
[2023-10-02] MEDS: lisinopriL 40 MG TABLET PO (19:30)
[2023-10-02] MEDS: amLODIPine Besylate 5 MG TABLET PO (19:30)
[2023-10-02] MEDS: Atorvastatin Calcium 10 MG TABLET PO (19:30)
[2023-10-02] MEDS: Cholecalciferol (Vitamin D3) 25 MCG TABLET PO (19:30)
[2023-10-02] MEDS: Tamsulosin HCL 0.4 MG CAPSULE PO (19:30)
[2023-10-02] MEDS: cefTRIAXone sodium 1 GM in 0.9 % Sodium Chloride 50 ML IV (19:31)
[2023-10-02] MEDS: guaiFEN/Codeine SF 200/20/10ML 10 ML LIQUID 5 ML PO (20:30)
--- NOTE | 2023-10-03 01:00 | PC.NURSE ---
Acquired care at 2330. Pt is intermittently awake due to IV pump alarming inside the room. RN removed the IV pump that is not used and placed it outside to allow pt to sleep. NO other complaints. remains in place with cloudy yellow colored urine.
[2023-10-03 03:13] VITALS: BP 169/93; PULSE 87; RESP 18; TEMP 36.9; O2SAT 93
[2023-10-03 06:33] LABS: Hematocrit 35.7 % (42.0-52.0); Hemoglobin 12.2 g/dl (14.0-18.0); Mean Corpuscular HGB Conc 34.2 g/dl (31.0-36.0); Mean Corpuscular Hemoglobin 32.2 pg (27.0-33.0); Mean Corpuscular Volume 94.2 fL (80.0-98.0); Mean Platelet Volume 9.1 fL (9.4-12.4); Platelet Count 181 X10*3/uL (160-400); Red Blood Count 3.79 X10*6/uL (4.60-5.80); Red Cell Distribution Width 13.1 % (11.0-16.0); White Blood Count 15.7 X10*3/uL (4.8-10.8)
[2023-10-03 06:57] LABS: Anion Gap 11 (12-20); Blood Urea Nitrogen 13 mg/dL (9-16); Calcium 8.6 mg/dL (8.4-10.2); Carbon Dioxide 26 mmol/L (22-29); Chloride 101 mmol/L (96-108); Creatinine Clr Calc Pharmacy 112.3; Estimated Glomerular Filt Rate > 60; Glucose Fasting 104 mg/dL (60-99); Potassium 3.5 mmol/L (3.3-5.1); Sodium 134 mmol/L (135-145)
[2023-10-03 07:59] VITALS: BP 158/84; PULSE 87; RESP 16; TEMP 36.9; O2SAT 94
--- NOTE | 2023-10-03 09:43 | PM.DS ---
DS: Providers Provider Date of Service: 10/03/23 Date of admission: 10/01/23 20:55 Primary care physician: NATE Jiménez DS: Diagnosis Discharge Diagnosis (1) Acute UTI: Status: Acute DS: Summary Hospital Course Hospital Course: from initial hpi: 77-year-old male with pertinent history of essential hypertension, mixed hyperlipidemia, urinary retention on catheter who presents to the emergency department for generalized weakness, not feeling well and dizziness. Patient states he has not been feeling unwell for the last few days. Admits fevers and Chills. Also has generalized weakness. Patient states he gets dizzy when he tries to get up. Also noticed change in color of urine. Patient states that around Halloween, he was unable to pee and catheter was inserted due to urinary retention. No chest discomfort, palpitations, shortness of breath, abdominal pain, changes in bowel habits. In the emergency department, patient was found to be septic and urine concerning for UTI. hospital course: Patient was admitted for sepsis due to catheter associated urinary tract infection patient with chronic due to urinary retention. He was treated ceftriaxone. Urine cultures are still pending, however, sepsis has resolved the patient feels back to baseline, he would like to be discharged on oral antibiotics and will adjust antibiotics with primary care physician as needed based on pending results of culture. He will continue on Flomax. For hypertension was continue amlodipine and lisinopril. For hyperlipidemia was continued on statin. Time Attestation Discharge coordination time: Greater than 30 minutes Quality: Safe Use of Opioids Does Pt have an Active Cancer Diagnosis on the Problem List?: No Quality: Stroke Does the patient have a stroke diagnosis?: No Physical Exam Vital Signs: Vital Signs: Last Vital Signs Temp 98.4 F 10/03/23 07:59 Pulse 87 10/03/23 07:59 Resp 16 10/03/23 07:59 BP 158/84 H 10/03/23 07:59 Pulse Ox 94 10/03/23 07:59 O2 Del Method Room Air 10/03/23 07:59 BMI result Body Mass Index 29.0 General: AO X 3, no acute distress Resp: CTA bilateral, no accessory muscles used CVS: S1,S2,RRR GI: soft, non tender, non distended Neuro: motor grossly intact, alert Psych: appropriate affect, appropriate insight DS: Data Data Completed and Pending Labs on day of discharge: Laboratory Results - last 24 hr 10/03/23 05:50 WBC 15.7 H RBC 3.79 L Hgb 12.2 L Hct 35.7 L MCV 94.2 MCH 32.2 MCHC 34.2 RDW 13.1 Plt Count 181 MPV 9.1 L Absolute Nucleated RBC 0.000 Nucleated RBC % (auto) 0.0 Sodium 134 L Potassium 3.5 Chloride 101 Carbon Dioxide 26 Anion Gap 11 L BUN 13 Creatinine 0.57 Estim Creat Clear Calc 112.3 Estimated GFR > 60 Fasting Glucose 104 H Calcium 8.6 Preliminary micro results at discharge 10/01/23 19:56 Blood Culture - Preliminary Blood - Venous No growth after 24 hours. 10/01/23 20:04 Blood Culture - Preliminary Blood - Venous No growth after 24 hours. 10/01/23 Unknown Urine Culture - Preliminary Urine clean catch - Urine [place] top Culture too young to evaluate. Discharge Plan Discharge Anticipated Discharge Date/Time: 10/03/23 09:41 Patient Disposition: Home, Self-Care Discharge Diagnosis: uti Referrals: Ely Levine FNP [Primary Care Provider] - 1 Week Discharge Medications: New cefuroxime axetil 500 mg tablet 500 mg PO BID Qty: 10 0RF Continued betamethasone, augmented 0.05 % cream 1 appl topical DAILY amlodipine 5 mg tablet 5 mg PO BEDTIME tamsulosin 0.4 mg capsule 0.4 mg PO BEDTIME simvastatin 20 mg tablet 20 mg PO BEDTIME lisinopril 40 mg Tablet 40 mg PO BEDTIME cholecalciferol (vitamin D3) 25 mcg (1,000 unit) Tablet 25 mcg PO BEDTIME Discharge Orders: Discharge Order (Routine); Ordered 10/03/23 Ordered By: Galileo Rubio Diet: Advance to usual diet Activity on Discharge: As tolerated Stand Alone Forms: Patient Portal Discharge page Care Plan Goals: recovery Health Concerns: uti Plan of Treatment: 5 more days ceftin, follow up urine culture that is still pending, antibiotics should be changed if needed based on results Assessment: see above
--- NOTE | 2023-10-03 09:55 | MHC.CM.PN ---
PT WILL DC HOME TODAY WITH NO SERVICES VIA FAMILY TRANSPORT
== END 2023-10-03 11:05 | disposition home or self-care (01) | DRG 700 ==
LOC: HO.ED 21:14 → HO.EDOVER 22:25 → HO.S3 10-02 02:39
PROVIDERS: Admitting Provider Student in an Organized Health Care Education/Training Program; Emergency Provider Emergency Medicine; PCP Nurse Practitioner Family; Visit Provider Internal Medicine
DX: T83.511A Infection and inflammatory reaction due to indwelling urethral catheter, initial encounter (principal); I10 Essential (primary) hypertension; E78.2 Mixed hyperlipidemia; R33.9 Retention of urine, unspecified; Z20.822 Contact with and (suspected) exposure to COVID-19; Z91.199 Patient's noncompliance with other medical treatment and regimen due to unspecified reason; Z87.891 Personal history of nicotine dependence; Z79.899 Other long term (current) drug therapy
CPT/HCPCS: 36415; 71045; 80048; 80076; 81001; 83605; 84484; 85025; 85027; 87040; 87086; 87502; 87635; 93005; 94640; 99285; C1758; J0696; J1650

== ENCOUNTER → 2023-10-01 19:00 | Outpatient (BNV) | payer MEDICARE, SELFPAY | PROVIDERS: Emergency Provider Emergency Medicine; PCP Nurse Practitioner Family; Visit Provider Student in an Organized Health Care Education/Training Program | DX: N39.0 Urinary tract infection, site not specified (principal) | CPT/HCPCS: 99222; 99232; 99239 ==

== ENCOUNTER 2024-10-11 09:02 | Outpatient (AMB) | payer MEDICARE, SELFPAY ==
--- NOTE | 2024-10-11 09:04 | A.OFFVIS_ITS ---
Vital Signs 10/11/24 09:05 Height 5 ft 6 in Weight 157 lb 13.616 oz BMI 25.5 BP 142/80 H Blood Pressure Location Rt brachial Position Sitting Pulse 70 Pulse Source Pulse Oximeter Pulse Oximetry (%) 97 Oxygen Delivery Method Room Air Intake Visit Reasons: Stricture of esophagus , new patient Intake Note: Relevant Flags or Indicators ? Requires Medication Reconciliation Technician? N Terry presents in office today for a scheduled initial consultation for ? stricture of esophagus. CC; No recent labs, diagnostics, or med orders placed. ? Relevant GI Sx as reported per pt? Reflux ? Dysphagia ? Hx of any recent surgeries? Prostate surgery 11/2023 - MGB. Pt last colonoscopy was in 2017 in [facility]. Pt has prev hx of dilation with EGD. Medication Reconciliation Technician Required: No Allergies No Known Allergies Allergy (Verified 10/11/24 09:12) HPI HPI Stricture of esophagus , new patient: Details: 78 years old male with past medical history of hypertension, seasonal allergy, hypercholesteremia, history of sepsis, acute UTI, dysphagia is here today for initial consultation. Patient recently moved back to [place], last seen by GI specialty was in 2019. Colonoscopy in 2017, diverticulosis found otherwise normal colonic mucosa. Recommendation for 10 years screening. No family history of CRC. History of dysphagia in the past last upper endoscopy in 2019, mild esophageal stricture ballooning performed at that time. Recurrent dysphagia in the past few months. Patient reports that even small capsule gets stuck in his throat. Patient was placed on famotidine, however he does not take it daily. Reports no reflux. Denies any epigastric pain postprandially. Denies any melena, hematochezia, unintentional weight loss or ribbon like stools. Patient denies any nausea or vomiting. Patient is accompanied by his . [facility] Medical History (Updated 10/11/24 @ 19:44 by RON HernadezP-) Dysphagia Urinary retention Mixed hyperlipidemia Essential hypertension Social History Household Members: Spouse Housing: Condominium Do you presently have visiting nurse or other home services: No Patient Tobacco Use Status: Former Tobacco user Advance Directives Date on File: 10/02/23 service: Yes Review of Systems Const Denies weight gain and Denies weight loss ENT Reports no additional complaints, Reports dysphagia and Denies odynophagia Card Reports no additional complaints Resp Reports no additional complaints GI Denies abdominal pain, Denies belching, Denies melena, Denies bloating, Denies change in bowel habits, Reports dysphagia, Denies excessive flatus, Denies dysp epsia, Denies heartburn, Denies diarrhea, Denies loose stools, Denies nausea, Denies odynophagia and Denies vomiting Reports no additional complaints Musc Reports no additional complaints Neuro Reports no additional complaints Psych Reports no additional complaints Endo Reports no additional complaints Physical Exam Vital Signs: Last Vital Signs Pulse 70 10/11/24 09:05 BP 142/80 H 10/11/24 09:05 Pulse Ox 97 10/11/24 09:05 Oxygen Delivery Method Room Air 10/11/24 09:05 BMI result Body Mass Index 25.5 Const General: healthy appearing, no acute distress and well developed Nutritional Appearance: well nourished Orientation/consciousness: patient oriented x3 Resp Effort & Inspection: normal respiratory effort, able to speak in complete sentences, no tracheal deviation and symmetric chest movement Auscultation: clear to auscultation bilaterally Cardio Rate: regular rate GI Inspection: Yes normal to inspection and No distended Palpation (GI): Soft to palpation, not firm, nontender and No hepatosplenomegaly present Auscultation: normal bowel sounds General: Yes no CVA tenderness Back/Spine/Pelvis Back: no CVA tenderness Skin General skin exam: elasticity normal, turgor normal and dry skin Neuro General: patient oriented x3 Psych Appearance: grossly normal Mental Status: mental status grossly normal Assessment & Plan Assessment & Plan (1) Dysphagia: Code(s): R13.10 - Dysphagia, unspecified Category: Medical Qualifiers: Dysphagia type: pharyngoesophageal phase Qualified Code(s): R13.14 - Dysphagia, pharyngoesophageal phase (2) GERD (gastroesophageal reflux disease): Code(s): K21.9 - Gastro-esophageal reflux disease without esophagitis Qualifiers: Esophagitis presence: esophagitis presence not specified Qualified Code(s): K21.9 - Gastro-esophageal reflux disease without esophagitis Plan Patient will start pantoprazole daily, will send him for upper GI series with barium swallow to evaluate, possibility of hiatal hernia, achalasia, Schatzki ring, esophageal stricture. Patient will be sent for upper endoscopy. Message sent to surgical schedulers to book procedure for patient. Patient denies any cardiac or respiratory symptoms. No issues with anesthesia in the past. Not on any anticoagulation medication. He will return to our office on as needed basis otherwise he will see us after upper endoscopy. Patient will call if his symptoms will get worse or go to emergency department if he will have food stuck in his throat. Patient was encouraged to chew well and eat small pieces. He is agreeable to current plan of care and verbalizes understanding of instructions. He was given the opportunity to ask questions and all questions answered. Thank you for allowing me to participate in his care Orders: Orders [place] upper GI w Ba Swallow Today K21.9 - Gastro-esophageal reflux disease without esophagitis, R13.10 - Dysphagia, unspecified Medications: New pantoprazole take one tablet half an hour before breakfast 40 mg PO DAILY 30 tabs 3RF K21.9 - Gastro-esophageal reflux disease without esophagitis Coding Level of Care Code New Pt Level 4 (40481) Diagnoses Pharyngoesophageal dysphagia R13.14 Dysphagia type: pharyngoesophageal phase Gastroesophageal reflux disease, unspecified whether esophagitis present K21.9 Esophagitis presence: esophagitis presence not specified Time Spent (min) 45 Comment 30 minutes spent with patient and additional 15 minutes spent reviewing his records
[2024-10-11 09:05] VITALS: BP 142/80; PULSE 70; O2SAT 97; BMI 25.5
== END 2024-10-11 09:57 | disposition home or self-care (01) ==
PROVIDERS: PCP Nurse Practitioner Family; Visit Provider Nurse Practitioner Family
DX: R13.14 Dysphagia, pharyngoesophageal phase (principal); K21.9 Gastro-esophageal reflux disease without esophagitis
CPT/HCPCS: 99204

== ENCOUNTER → 2024-10-11 09:02 | Outpatient (BNVA) | payer MEDICARE, SELFPAY | PROVIDERS: PCP Nurse Practitioner Family; Visit Provider Nurse Practitioner Family | DX: R13.14 Dysphagia, pharyngoesophageal phase (principal); K21.9 Gastro-esophageal reflux disease without esophagitis | CPT/HCPCS: 99202 ==

== ENCOUNTER 2025-01-03 08:42 | Outpatient (REF) | payer MEDICARE, SELFPAY | END 2025-01-03 08:43 | disposition home or self-care (01) | LOC: HO.XRAY 08:42 | PROVIDERS: PCP Nurse Practitioner Family; Visit Provider Nurse Practitioner Family | DX: R13.10 Dysphagia, unspecified (principal); K21.9 Gastro-esophageal reflux disease without esophagitis | CPT/HCPCS: 74240 ==

== ENCOUNTER → 2025-01-03 08:44 | Outpatient (BNV) | payer MEDICARE, SELFPAY | PROVIDERS: PCP Nurse Practitioner Family; Visit Provider Physician Assistant Surgical | DX: R13.10 Dysphagia, unspecified (principal) | CPT/HCPCS: 74246; 74248 ==

== ENCOUNTER 2025-01-12 09:14 | Day surgery (SDC) | payer MEDICARE, SELFPAY ==
[2025-01-12 09:46] VITALS: BMI 26.1
--- NOTE | 2025-01-12 09:46 | MHC.SHP ---
Pre-Procedural Eval Section A - 24 Hr Update-Section A only Date of Service: 01/12/25 Section B - Complete if H&P > 30 days Chief Complaint: Dysphagia, pharyngoesophageal phase Relevant Family History (Specify if Yes): No Relevant Social History: None Present Medications: see Short Stay Collaborative assessment Medical History: Significant History (Dysphagia Urinary retention Mixed hyperlipidemia Essential hypertension) History of Previous Operations: Relevant previous surgery/procedure and date(s) (EGD) Allergies: Allergies Allergy/AdvReac Type Severity Reaction Status Date / Time No Known Allergies Allergy Verified 01/12/25 09:45 Review of Systems Sugical H&P ROS: Negative: Constitution, Cardiovascular, Respiratory, Neurological, Psychiatric, Hem-Onc, Allergic/Immunologic, Gastrointestinal, Genitourinary, Musculoskeletal, Integumentary, Endocrine and Eyes/Ears/Nose/Throat Exam Surgical H&P Exam: Normal: HEENT, Normal: Heart, Normal: Lungs, Normal: Extremities, Normal: Abdomen, Normal: Skin and Normal: Neurological Plan Diagnosis/Plan: Unchanged I have reviewed the history and physical and performed a pertinent physical examination on my patient. No changes have occurred unless specified. Time Spent With Patient Time: Total time managing care of this patient today ____ minutes.
[2025-01-12 09:51] VITALS: BP 168/83; PULSE 78; RESP 16; TEMP 37.4; O2SAT 98
[2025-01-12] MEDS: Lactated Ringers 1,000 ML 100 ML IVCONT (10:07)
--- NOTE | 2025-01-12 10:26 | HO.ANESPROP2 ---
HPI - Anesthesia Eval Consult details Narrative: for EGD, dilation PMFSH Active Problems Active Problems: All Active Problems Dysphagia (Acute) Acute UTI (Acute) Sepsis (Acute) Essential hypertension (Acute) Mixed hyperlipidemia (Acute) Urinary retention (Acute) Past Medical History Medical History (Updated 10/11/24 @ 19:44 by Cece Holden, [facility]) Dysphagia Urinary retention Mixed hyperlipidemia Essential hypertension Family History Family history of problems with anesthesia: No Surgical History History of Problems with Anesthesia: No Social History Social History Household Members: [facility] Do you presently have visiting nurse or other home services: No Patient Tobacco Use Status: Former Tobacco user Use of substances other than those prescribed or required for medical reasons: No Are you DNR?: No Advance Directives: No Advance Directives Information Provided: Yes Advance Directives Date on File: 10/02/23 service: Yes Meds Allergies Allergy/AdvReac Type Severity Reaction Status Date / Time No Known Allergies Allergy Verified 01/12/25 09:45 Active Medications: Current Medications Lactated Ringer's (Lr) 1,000 mls @ 100 mls/hr IVCONT .Q10H DEBORAH Last Admin: 01/12/25 10:07 Dose: 100 mls/hr Home Medications ?Medication ?Instructions ?Recorded ?Confirmed ?Last Taken ?Type amlodipine 5 mg tablet 5 mg PO BEDTIME 10/01/23 01/12/25 09/30/23 History cholecalciferol (vitamin D3) 25 25 mcg PO BEDTIME 10/01/23 01/12/25 09/30/23 History mcg (1,000 unit) tablet lisinopril 40 mg tablet 40 mg PO BEDTIME 10/01/23 01/12/25 09/30/23 History simvastatin 20 mg tablet 20 mg PO BEDTIME 10/01/23 01/12/25 09/30/23 History cetirizine 10 mg tablet (All Day 10 mg PO DAILY PRN allergies 10/11/24 01/12/25 Unknown History Allergy (cetirizine)) famotidine 20 mg tablet 20 mg PO DAILY PRN reflux 10/11/24 01/12/25 Unknown History finasteride 5 mg tablet 5 mg PO DAILY 10/11/24 01/12/25 Unknown History mometasone 0.1 % topical solution 1 appl topical DAILY 10/11/24 01/12/25 Unknown History psyllium seed (sugar) oral powder 2 tsp PO DAILY 10/11/24 01/12/25 Unknown History (Metamucil (sugar) oral powder) red beet 250 mg-sour matos 250 tab PO 10/11/24 Unknown History extract 0.5 mg chewable tablet sildenafil 100 mg tablet 100 mg PO PRN Edema 10/11/24 Unknown History vit C 250 mg-vit E 90 mg-zinc 40 1 tab PO BID 10/11/24 01/12/25 Unknown History mg-copper 1 [id number] capsule (PreserVision AREDS-2) Exam Height,Weight and Vital Signs: Height 5 ft 6 in Weight 73.482 kg Last Vital Signs Temp 99.3 F 01/12/25 09:51 Pulse 78 01/12/25 09:51 Resp 16 01/12/25 09:51 BP 168/83 H 01/12/25 09:51 Pulse Ox 98 01/12/25 09:51 O2 Del Method Room Air 01/12/25 09:51 Airway Mallampati Class: II TM Dist: >3cm Neck ROM: Full Loose/Missing/Broken Teeth: No Heart: ok Lungs: ok Assessment and Plan Assessment Anesthesia Assessment: Anesthesia Plan Discussed and Chart Reviewed Final Anesthetic Review Family History of Problems with Anesthesia: No History of Problems with Anesthesia: No NPO: Yes ASA Class: III Final Preanesthetic Review: No Changes in Pt Med Stat, Meds/Allgs Chart Reviewed, Consent Obtained/Reviewed and Anes Risks/Benef Reviewed Patient Risk: Intermediate Procedure Risk: Intermediate Anesthetic Plan Anesthetic Plan: Agree w/ Assess. and Plan and TIVA Disposition: Standard PACU
--- NOTE | 2025-01-12 10:47 | W.PM.OPN ---
Operative Note Operative Note Date of Service: 01/12/25 Narrative: Procedure Description: EGD Indication: dysphagia Anesthesia: MAC FLEXIBLE TRANSORAL UPPER GASTROINTESTINAL ENDOSCOPY UPPER ENDOSCOPY Consent: Indications for the procedure and potential complications of bleeding, perforation, reaction to medications and missed diagnosis were discussed with the patient and informed consent was obtained. Instrument: Olympus GIF H 190 J mid size upper endoscope Monitoring: Vital signs and clinical assessment, continuous EKG monitoring, Pulse oximetry, Carbon Dioxide monitoring and blood pressure monitoring were done throughout the procedure. Procedure: The patient was placed in the left lateral decubitis position and pre-procedure medications were administered and a bite block was placed. The endoscope was inserted into the mouth and advanced under direct vision to the third part of duodenum. A careful inspection was made as the upper endoscope was withdrawn including a retroflexed examination of the proximal stomach; Findings and interventions are described below. Findings: Larynx:normal Esophagus: GE junction at 38 cm, diaphragm hiatus at 40 cm, small hiatal hernia noted. Schatzki ring noted and some ringing of the mucosa with mild esophagitis. Balloon dilation done to 18 mm at LES and 18 mm at UES. Tear noted at LES, one clip applied for hemostasis. Stomach: patchy erythema and granularity . Biopsies were obtained. Grade 2 flap valve on retroflexed examination of the cardia. Duodenum: Normal bulb and descending duodenum, Intervention: Biopsies as noted above, balloon dilation Impression/Findings: gastritis esophagitis hiatal hernia schatzki ring PLAN: soft diet today, compliance with PPI, only taking prn. magic mouthwash for 1 week GERD precautions
[2025-01-12 11:01] VITALS: BP 134/69; PULSE 90; RESP 20; TEMP 36.9; O2SAT 93
[2025-01-12] MEDS: Acetaminophen 325 MG TABLET 975 MG PO (11:04)
[2025-01-12] MEDS: Mag&Al/Sim/Diphenhyd/Lidocaine 10 ML ORAL.SUSP PO (11:05)
[2025-01-12 11:16] VITALS: BP 156/83; PULSE 74; RESP 20; TEMP 37; O2SAT 98
== END 2025-01-12 11:45 | disposition home or self-care (01) ==
PROVIDERS: PCP Nurse Practitioner Family; Visit Provider Internal Medicine Gastroenterology
PROC: 0DJ08ZZ Inspection of Upper Intestinal Tract, Via Natural or Artificial Opening Endoscopic (ICD-10-PCS; CPT 43235; principal; 2025-01-12 11:40)
DX: R13.14 Dysphagia, pharyngoesophageal phase (principal); K22.2 Esophageal obstruction; K20.80 Other esophagitis without bleeding; K29.50 Unspecified chronic gastritis without bleeding; K44.9 Diaphragmatic hernia without obstruction or gangrene; K21.9 Gastro-esophageal reflux disease without esophagitis; I10 Essential (primary) hypertension; E78.2 Mixed hyperlipidemia; J30.2 Other seasonal allergic rhinitis; R33.9 Retention of urine, unspecified; Z79.899 Other long term (current) drug therapy; Z87.891 Personal history of nicotine dependence
CPT/HCPCS: 43249; 43239; 88305; 88313; 88342; C1726; J2003; J2704; J3010

== ENCOUNTER → 2025-01-12 09:14 | Outpatient (BNV) | payer MEDICARE, SELFPAY | PROVIDERS: PCP Nurse Practitioner Family; Visit Provider Internal Medicine Gastroenterology | DX: R13.14 Dysphagia, pharyngoesophageal phase (principal); K22.2 Esophageal obstruction; K20.90 Esophagitis, unspecified without bleeding; K29.70 Gastritis, unspecified, without bleeding | CPT/HCPCS: 43239; 43249 ==

== ENCOUNTER 2025-02-02 09:43 | Outpatient (REF) | payer MEDICARE, SELFPAY ==
[2025-02-04 15:17] LABS: H Pylori Breath Test Negative (Negative)
== END 2025-02-02 09:44 | disposition home or self-care (01) ==
LOC: HO.LNP 09:43
PROVIDERS: PCP Nurse Practitioner Family; Visit Provider Nurse Practitioner Family
DX: R13.14 Dysphagia, pharyngoesophageal phase (principal)
CPT/HCPCS: 83013; 99211

== ENCOUNTER 2025-02-02 09:43 | Outpatient (AMB) | payer MEDICARE, SELFPAY ==
--- NOTE | 2025-02-02 09:57 | AM.OFFVISNUR ---
Intake Visit Reasons: H Pylori, Hold Panto + Pepcid. Allergies No Known Allergies Allergy (Verified 01/12/25 09:45) Nursing Note Patient presents for collection of H Pylori breath test. Patient has been fasting for 1 hour (nothing to eat, drink, no chewing gum or smoking) has not taken any antacid medication for at least 2 weeks and has no allergies to artificial sweeteners.?? Assessment & Plan Assessment & Plan (1) Dysphagia: Code(s): R13.10 - Dysphagia, unspecified Category: Medical Qualifiers: Dysphagia type: pharyngoesophageal phase Qualified Code(s): R13.14 - Dysphagia, pharyngoesophageal phase Plan Patient presents for collection of H Pylori breath test. Patient has been fasting for 1 hour (nothing to eat, drink, no chewing gum or smoking) has not taken any antacid medication for at least 2 weeks and has no allergies to artificial sweeteners.???This test checks for an overgrowth of bacteria in your stomach. We all have bacteria but some may have more than others. It is treatable. if the test comes back negative there is nothing else to do. If the test result is positive we will treat you with 2 antibiotics and a medication to decrease the acid in your stomach (PPI) for 2 weeks. Two weeks after you have completed the treatment we will retest you to make sure the overgrowth has resolved. Orders: Orders H Pylori Breath Test Today Patient Instructions: Process for specimen collection and reason for testing was explained to the patient. Specimen collection. Patient instructed to take a deep breath and then exhale into the blue bag, filling it up as much as possible. Patient instructed to drink a mixture of water and the artificial sweetener with a straw. A 15 minute wait period was observed. Patient instructed to take a deep breath and then exhale into the pink bag, filling it up as much as possible.? Coding Level of Care Code Established Pt Est Pt Level 1 (78196) Patient Type Established Medical Decision Making Straight Forward Diagnoses Pharyngoesophageal dysphagia R13.14 Dysphagia type: pharyngoesophageal phase
== END 2025-02-02 10:14 | disposition home or self-care (01) ==
LOC: HO.HGI 09:43
PROVIDERS: PCP Nurse Practitioner Family; Visit Provider Nurse Practitioner Family
DX: R13.14 Dysphagia, pharyngoesophageal phase (principal)

== ENCOUNTER 2025-02-22 09:56 | Outpatient (AMB) | payer MEDICARE, SELFPAY ==
[2025-02-22 09:58] VITALS: BP 146/72; PULSE 60; O2SAT 96; BMI 25.9
--- NOTE | 2025-02-22 09:58 | MHC.OFFVIS ---
Vital Signs 02/22/25 09:58 Height 5 ft 6 in Weight 160 lb 7.944 oz BMI 25.9 BP 146/72 H Blood Pressure Location Rt brachial Position Sitting Pulse 60 Pulse Source Pulse Oximeter Pulse Oximetry (%) 96 Oxygen Delivery Method Room Air Intake Visit Reasons: EGD; Dr. Henao Intake Note: ESTABLISHED PATIENT for s/p egd w/ . Dysphagia mgmt. Chief Complaint; Pt denies any GI symptoms at this time. Pt does need refill of PPI and would like Rx for famotidine as he is now taking it daily at bedtime. Pt had previously been taking it PRN. No additional concerns at this time. 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 Henao: Details: UPPER ENDOSCOPY AND COLONOSCOPY: Findings: Larynx:normal Esophagus: GE junction at 38 cm, diaphragm hiatus at 40 cm, small hiatal hernia noted. Schatzki ring noted and some ringing of the mucosa with mild esophagitis. Balloon dilation done to 18 mm at LES and 18 mm at UES. Tear noted at LES, one clip applied for hemostasis. Stomach: patchy erythema and granularity . Biopsies were obtained. Grade 2 flap valve on retroflexed examination of the cardia. Duodenum: Normal bulb and descending duodenum, Intervention: Biopsies as noted above, balloon dilation Impression/Findings: gastritis esophagitis hiatal hernia schatzki ring PLAN: soft diet today, compliance with PPI, only taking prn. magic mouthwash for 1 week GERD precautions PATHOLOGY: Diagnosis Stomach, biopsy: Antral-type and oxyntic mucosa with moderate chronic, focally active, inflammation; no Helicobacter organisms seen. Clinical History Pre-Op Dx: Dysphagia Post-Op Dx: Esophagitis, gastritis, Schatzki's ring, stricture TODAY'S VISIT Patient is here today for follow-up and to discuss upper endoscopyresults. Patient denies any ill effects from the anesthesia procedure itself. Patient reports that he no longer has dysphagia. Takes pantoprazole as needed, however was told by colonoscopy is to take it daily. Schatzki ring noted and patient had balloon dilation. Minor tear and clip was placed. Patient denies any pain. Mild gastritis and esophagitis as well as small hiatal hernia. Patient is here today accompanied by his who helps with getting more information and history from patient. Patient denies any other GI concerning symptoms. Refill for famotidine and pantoprazole requested [facility] Medical History (Updated 02/22/25 @ 19:01 by Cece Holden [facility]) Dysphagia Urinary retention Mixed hyperlipidemia Essential hypertension Surgical History (Updated 02/22/25 @ 10:18 by ANGIE Ortiz) History of colonoscopy History of prostate surgery (~11/2023) Social History Household Members: Spouse [facility] Do you presently have visiting nurse or other home services: No Patient Tobacco Use Status: Former Tobacco user Advance Directives Date on File: 10/02/23 service: Yes Review of Systems Const Denies weight gain and Denies weight loss ENT Reports no additional complaints, Denies dysphagia and Denies odynophagia Card Reports no additional complaints Resp Reports no additional complaints GI Denies abdominal pain, Denies belching, Denies melena, Denies bloating, Denies change in bowel habits, Denies dysphagia, Denies excessive flatus, Denies dyspepsia, Reports heartburn (Occasional), Denies diarrhea, Denies loose stools, Denies nausea, Denies odynophagia and Denies vomiting Reports no additional complaints Musc Reports no additional complaints Neuro Reports no additional complaints Psych Reports no additional complaints Endo Reports no additional complaints Physical Exam Vital Signs: Last Vital Signs Pulse 60 02/22/25 09:58 BP 146/72 H 02/22/25 09:58 Pulse Ox 96 02/22/25 09:58 Oxygen Delivery Method Room Air 02/22/25 09:58 BMI result Body Mass Index 25.9 Const General: healthy appearing, no acute distress and well developed Nutritional Appearance: well nourished Orientation/consciousness: patient oriented x3 Resp Effort & Inspection: normal respiratory effort, able to speak in complete sentences, no tracheal deviation and symmetric chest movement Auscultation: clear to auscultation bilaterally Cardio Rate: regular rate GI Inspection: Yes normal to inspection and No distended Palpation (GI): Soft to palpation, not firm, nontender and No hepatosplenomegaly present Auscultation: normal bowel sounds General: Yes no CVA tenderness Back/Spine/Pelvis Back: no CVA tenderness Skin General skin exam: elasticity normal, turgor normal and dry skin Neuro General: patient oriented x3 Psych Appearance: grossly normal Mental Status: mental status grossly normal Assessment & Plan Assessment & Plan (1) Dysphagia: Code(s): R13.10 - Dysphagia, unspecified Category: Medical Qualifiers: Dysphagia type: pharyngoesophageal phase Qualified Code(s): R13.14 - Dysphagia, pharyngoesophageal phase (2) GERD (gastroesophageal reflux disease): Code(s): K21.9 - Gastro-esophageal reflux disease without esophagitis Qualifiers: Esophagitis presence: with esophagitis Esophagitis bleeding: without hemorrhage Qualified Code(s): K21.00 - Gastro-esophageal reflux disease with esophagitis, without bleeding Plan Patient will continue taking pantoprazole daily may take famotidine as needed. Avoid dietary triggers and late night snacking. Staying upright permanently hours after meals discussed with patient. Recommended to eat smaller meals and more often. Patient will follow-up in 4 months, sooner on as needed basis. Both patient and his are agreeable to plan of care and verbalizes understanding of instructions. They were given the opportunity to ask questions and all questions answered. Thank you for allowing me to participate in his care Medications: Refilled pantoprazole take one tablet half an hour before breakfast 40 mg PO DAILY 90 tabs 3RF K21.9 - Gastro-esophageal reflux disease without esophagitis Coding Level of Care Code Est Pt Level 3 (49225) Diagnoses Pharyngoesophageal dysphagia R13.14 Dysphagia type: pharyngoesophageal phase Gastroesophageal reflux disease with esophagitis without hemorrhage K21.00 Esophagitis presence: with esophagitis Esophagitis bleeding: without hemorrhage Time Spent (min) 30 Comment 20 minutes spent with patient and additional 10 minutes spent reviewing his records
== END 2025-02-22 10:46 | disposition home or self-care (01) ==
LOC: HO.HGI 09:57
PROVIDERS: PCP Nurse Practitioner Family; Visit Provider Nurse Practitioner Family
DX: R13.14 Dysphagia, pharyngoesophageal phase (principal); K21.00 Gastro-esophageal reflux disease with esophagitis, without bleeding
CPT/HCPCS: 99213

== ENCOUNTER → 2025-02-22 09:56 | Outpatient (BNVA) | payer MEDICARE, SELFPAY | PROVIDERS: PCP Nurse Practitioner Family; Visit Provider Nurse Practitioner Family | DX: R13.14 Dysphagia, pharyngoesophageal phase (principal); K21.00 Gastro-esophageal reflux disease with esophagitis, without bleeding | CPT/HCPCS: 99212 ==

== ENCOUNTER 2025-06-26 09:17 | Outpatient (AMB) | payer MEDICARE, SELFPAY ==
[2025-06-26 09:25] VITALS: BP 148/76; PULSE 58; O2SAT 97; BMI 25.7
--- NOTE | 2025-06-26 09:25 | MHC.OFFVIS ---
Vital Signs 06/26/25 09:25 Height 5 ft 6 in Weight 159 lb BMI 25.7 BP 148/76 H Blood Pressure Location Rt brachial Position Sitting Pulse 58 Pulse Source Pulse Oximeter Pulse Oximetry (%) 97 Oxygen Delivery Method Room Air Intake Visit Reasons: 4m reflux Intake Note: Est pt for GERD w/ schatzki's ring mgmt. CC; C.O. dysphagia despite most recent dilation. Pt has had difficulties with taking certain medications and has not felt comfortable taking them out of fear of choking. 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 Avoid dietary triggers and late night snacking. Staying upright permanently hours after meals discussed with patient. Recommended to eat smaller meals and more often. Patient will follow-up in 4 months, sooner on as needed basis. Both patient and his are agreeable to plan of care and verbalizes understanding of instructions. They were given the opportunity to ask questions and all questions answered. ? Thank you for allowing me to participate in his care Refilled pantoprazole take one tablet half an hour before breakfast 40 mg PO DAILY 90 tabs 3RF K21.9 TODAY'S VISIT Patient is here today for follow-up and is accompanied by his . Patient is taking pantoprazole daily and symptoms of acid reflux have suppressed. Patient admits to have 1 episode 26 of May when taking his supplement and it got stuck in the lower part of his esophagus. Patient reports that he felt like he was choking. Only single episode. No trouble swallowing solids or liquids. Patient denies dyspepsia or odynophagia. Reports that he is moving his bowels well and denies any other GI concerning symptoms. [facility] Medical History (Updated 06/26/25 @ 10:03 by Cece Holden [facility]) GERD (gastroesophageal reflux disease) Dysphagia Urinary retention Mixed hyperlipidemia Essential hypertension Surgical History History of colonoscopy History of prostate surgery (~11/2023) Social History Household Members: Spouse Housing: Condominium Do you presently have visiting nurse or other home services: No Patient Tobacco Use Status: Former Tobacco user Advance Directives Date on File: 10/02/23 service: Yes Review of Systems Const Denies weight gain and Denies weight loss ENT Reports no additional complaints, Reports dysphagia (One episode) and Denies odynophagia Card Reports no additional complaints Resp Reports no additional complaints GI Denies abdominal pain, Denies belching, Denies melena, Denies bloating, Denies change in bowel habits, Reports dysphagia (One episode), Denies excessive flatus, Denies dyspepsia, Reports heartburn (Occasional), Denies diarrhea, Denies loose stools, Denies nausea, Denies odynophagia and Denies vomiting Reports no additional complaints Musc Reports no additional complaints Neuro Reports no additional complaints Psych Reports no additional complaints Endo Reports no additional complaints Physical Exam Vital Signs: Last Vital Signs Pulse 58 06/26/25 09:25 BP 148/76 H 06/26/25 09:25 Pulse Ox 97 06/26/25 09:25 Oxygen Delivery Method Room Air 06/26/25 09:25 BMI result Body Mass Index 25.7 Const General: healthy appearing, no acute distress and well developed Nutritional Appearance: well nourished Orientation/consciousness: patient oriented x3 Resp Effort & Inspection: normal respiratory effort, able to speak in complete sentences, no tracheal deviation and symmetric chest movement Auscultation: clear to auscultation bilaterally Cardio Rate: regular rate GI Inspection: Yes normal to inspection and No distended Palpation (GI): Soft to palpation, not firm, nontender and No hepatosplenomegaly present Auscultation: normal bowel sounds General: Yes no CVA tenderness Back/Spine/Pelvis Back: no CVA tenderness Skin General skin exam: elasticity normal, turgor normal and dry skin Neuro General: patient oriented x3 Psych Appearance: grossly normal Mental Status: mental status grossly normal Assessment & Plan Assessment & Plan (1) Dysphagia: Code(s): R13.10 - Dysphagia, unspecified Category: Medical Qualifiers: Dysphagia type: pharyngoesophageal phase Qualified Code(s): R13.14 - Dysphagia, pharyngoesophageal phase (2) GERD (gastroesophageal reflux disease): Code(s): K21.9 - Gastro-esophageal reflux disease without esophagitis Category: Medical Qualifiers: Esophagitis presence: esophagitis presence not specified Qualified Code(s): K21.9 - Gastro-esophageal reflux disease without esophagitis Plan Patient will continue taking pantoprazole daily. Avoid dietary triggers in late night snacking. Staying upright for minimum 3 hours after meals discussed with patient. Possible esophageal spasm. Patient will resume taking the medication possibly with applesauce. No other issues with swallowing any solids only that 1 time. If patient will have trouble swallowing he will call our office and will send her for upper GI with barium swallow again he might need she to have another dilation. He will follow-up in our office as needed. He is agreeable to this plan and verbalizes understanding of instructions. He was given the opportunity to ask questions and all questions answered. Thank you for allowing for his care Orders: Referrals Dermatology Referral L30.9 - Dermatitis, unspecified Medications: Refilled pantoprazole take one tablet half an hour before breakfast 40 mg PO DAILY 90 tabs 3RF K21.9 - Gastro-esophageal reflux disease without esophagitis Coding Level of Care Code Est Pt Level 3 (26862) Diagnoses Pharyngoesophageal dysphagia R13.14 Dysphagia type: pharyngoesophageal phase Gastroesophageal reflux disease, unspecified whether esophagitis present K21.9 Esophagitis presence: esophagitis presence not specified Time Spent (min) 25 Comment 15 minutes spent with patient and additional 10 minutes spent reviewing his records
--- OUTSIDE RECORDS SUMMARY | 2025-06-26 09:42 | XMS_ITS | Encounter Summary ---
Author Organization [facility] Address [address] [place] [phone] Phone Care Team Providers Care In Home Nanny Name Role Phone Fay Levine [facility] Primary Care Provid er Maurice Moses MBBS Unavailable Encounter Details Date Type Department Care Team ([facility] Contact Info) Description 04/20/2024 Procedure [facility], Ct Scan - [address] [address] Social History Tobacco Use Types Packs/Day Years Used Date Smoking Tobacco: Former Cigarettes 1 25 0 12/19/1963 - 12/19/1988 Smokeless Tobacco: Never Alcohol Use Standard Drinks/Week Comments Yes 7 (1 standard drink = 0.6 oz pur e alcohol) Daily Martini Education Answer Date Recorded Are you interested in more education? Not on mable e 03/21/2023 Are you concerned about learning? Not on file 03/21/2023 No 03/21/2023 No 03/21/2023 Digital Access Answer Date Recorded No 04/19/2023 No 04/19/2023 Reliable internet access at home? Not on file 04/19/2023 Device with a working camera? Not on file Sex and Gender Information Value Date Recorded Sex Assigned at Not on file Legal Sex Male 10:31 AM EDT Gender Identity Not on file Sexual Orientation Not on file documented as of this encounter Plan of Treatment Upcoming Encounters Date Type Department Care Team ([facility] Contact Info) Description 10/02/2025 10:30 AM EST Office Visit [facility] [address] [place] [address] [place] [address] Fay Levine CNP [address] [place] [id number] 10/25/2025 7:40 AM EST Appointment [facility] [address] [place] [phone] Maurice Moses MBBS [address] [place] [address] [email or web address] 10/25/2025 8:30 AM EST Office Visit [facility] at [address] [address] Yuliya Guzman PA-C [address] [place] [id number] [email or web address] documented as of this encounter Visit Diagnoses Not on filedocumented in this encounter Additional Health Concerns Assessment Noted Time PHQ-2 Depression Total Score: 0 11/20/20 23 11:10 AM EST documented as of this encounter Care Teams In Home Nanny Relationship Specialty Start Date End Date MarcosFay castillo CNP [address] [place] [phone] [email or web address] PCP - General Family Medicine 09/17/23 Maurice Moses MBBS [address] [place] [id number] [email or web address] 12/04/23 documented as of this encounter Additional Source Comments The information contained in this document represents components of the legal health record. It is not the complete legal health record.[facility]
== END 2025-06-26 10:49 | disposition home or self-care (01) ==
LOC: HO.HGI 09:18
PROVIDERS: PCP Nurse Practitioner Family; Visit Provider Nurse Practitioner Family
DX: R13.14 Dysphagia, pharyngoesophageal phase (principal); K21.9 Gastro-esophageal reflux disease without esophagitis
CPT/HCPCS: 99213

== ENCOUNTER → 2025-06-26 09:17 | Outpatient (BNVA) | payer MEDICARE, SELFPAY | PROVIDERS: PCP Nurse Practitioner Family; Visit Provider Nurse Practitioner Family | DX: K21.9 Gastro-esophageal reflux disease without esophagitis (principal); R13.14 Dysphagia, pharyngoesophageal phase | CPT/HCPCS: 99212 ==